=== PATIENT | female | born 1985 | race Caucasian/White ===

== ENCOUNTER 2016-10-09 10:24 | Inpatient (IN) | payer OTHER ==
[2016-10-09] MEDS ORDERED: DEXTROSE 5%-LACTATED RINGERS 1,000 ML IV SCH (12:25)
[2016-10-09] MEDS ORDERED: OXYTOCIN 15 UNITS/ LR 250 ML 250 ML IVPB SCH (13:00)
[2016-10-09 13:35] VITALS: BMI 32.5
[2016-10-09 13:40] LABS: BASOPHIL 0.3 % (0-2.0); EOSINOPHIL 0.3 % (0-4.5); MCH 23.3 pg (25.7-33.7); MCHC 31.7 g/dl (32.0-36.0); MEAN CELL VOLUME 73.3 fl (80-96); MEAN PLT VOLUME 7.8 fl (7.5-11.1); NEUTROPHILS 70.8 % (42.8-82.8); PLATELET COUNT 346 K/MM3 (134-434); RDW 18.2 % (11.6-15.6); WHITE BLOOD COUNT 12.5 K/mm3 (4.0-10.0)
[2016-10-09 13:50] LABS: CALCIUM 9.2 mg/dL (8.5-10.1); COCKROFT - GAULT 197.098; CREATININE 0.5 mg/dL (0.55-1.02)
[2016-10-09 13:59] LABS: INR 1.02 (0.82-1.09); PROTHROMBIN TIME (PATIENT) 11.2 SEC (9.98-11.88)
[2016-10-09 14:02] LABS: ACTIVATED PTT 26.7 SECONDS (26.9-34.4)
[2016-10-09] MEDS ORDERED: ELECTROLYTE-148 SOLN 500 ML IV ONE ×2 (20:30→21:30)
--- NOTE | 2016-10-09 20:37 | PN ---
Progress Note (short form) - Note Progress Note: cx 6 cm 80 ,vx -1. arom clear, herat rate good vaiability , with accel . had several mild variable decel . corrected on lt side, wants epidural anesthesia
[2016-10-09] MEDS ORDERED: FENTANYL/BUPIVACAINE/NS/PF - PCEA - 50 ML DISP.SYRIN EP SCH (21:00)
--- NOTE | 2016-10-10 01:28 | PN ---
Progress Note (short form) - Note Progress Note: cx full 100 vx 0 mr . r cat1
[2016-10-10] MEDS ORDERED: METHYLERGONOVINE MALEATE 0.2 MG/1 ML AMP IM PRN (02:20)
[2016-10-10] MEDS ORDERED: BISACODYL 10 MG SUPP.RECT RC PRN (02:20)
[2016-10-10] MEDS ORDERED: BENZOCAINE 20% 57 GM BOTTLE TP PRN (02:20)
[2016-10-10] MEDS ORDERED: BENZOCAINE 28 GM HEMORRHOIDAL OINTMENT TP PRN (02:20)
[2016-10-10] MEDS ORDERED: WITCH HAZEL 50% (TUCKS) 40 PAD/JAR PAD TP PRN (02:20)
[2016-10-10] MEDS ORDERED: D5W-LR W/ 20 UNITS OXYTOCIN 1,000 ML IV SCH (02:30)
[2016-10-10 02:46] LABS: VENOUS BLOOD GAS HCO3 23.9 meq/L (19-25); VENOUS PH 7.25 (7.32-7.42)
[2016-10-10] MEDS: ACETAMINOPHEN 325 MG TABLET (FP) PO PRN ×2 (04:45→21:10)
[2016-10-10] MEDS: IBUPROFEN 600 MG TABLET (FP) PO PRN ×2 (04:47→21:11)
[2016-10-10] MEDS: FERROUS SO4 325 MG TABLET (FP) PO SCH ×2 (09:53→21:10)
[2016-10-10] MEDS: PRENATAL VITAMINS W/ FOLIC ACID TABLET (FP) PO SCH (09:53)
--- NOTE | 2016-10-11 07:32 | PN ---
Post Progress Note Type of Delivery: Vital Signs: Vital Signs Temperature 98.2 F 10/11/16 00:44 Pulse Rate 68 10/11/16 00:44 Respiratory Rate 20 10/11/16 00:44 Blood Pressure 101/50 10/11/16 00:44 O2 Sat by Pulse Oximetry (%) 99 10/10/16 02:30 Breast Exam: Yes: Soft Uterus: Yes: Fundus Firm Abdomen/GI: Yes: Abdomen soft Lochia: Yes: Rubra Lochia, amount: Small Extremities: Yes: Calves non-tender Perineum: Yes: Intact Activity: Ambulating - Labs Labs: CBC WBC 12.5 K/mm3 (4.0-10.0) H 10/09/16 13:13 RBC 4.52 M/mm3 (3.60-5.2) 10/09/16 13:13 Hgb 10.5 GM/dL (10.7-15.3) L 10/09/16 13:13 Hct 33.1 % (32.4-45.2) 10/09/16 13:13 MCV 73.3 fl (80-96) L 10/09/16 13:13 MCHC 31.7 g/dl (32.0-36.0) L 10/09/16 13:13 RDW 18.2 % (11.6-15.6) H 10/09/16 13:13 Plt Count 346 K/MM3 (134-434) 10/09/16 13:13 MPV 7.8 fl (7.5-11.1) 10/09/16 13:13 Neutrophils % 70.8 % (42.8-82.8) 10/09/16 13:13 Lymphocytes % 19.8 % (8-40) 10/09/16 13:13 Monocytes % 8.8 % (3.8-10.2) 10/09/16 13:13 Eosinophils % 0.3 % (0-4.5) 10/09/16 13:13 Basophils % 0.3 % (0-2.0) 10/09/16 13:13 Assessment/Plan as above oob reg diet continue care
[2016-10-11 09:18] LABS: BASOPHIL 0.4 % (0-2.0); EOSINOPHIL 1.4 % (0-4.5); MCH 23.2 pg (25.7-33.7); MCHC 31.6 g/dl (32.0-36.0); MEAN CELL VOLUME 73.4 fl (80-96); MEAN PLT VOLUME 7.8 fl (7.5-11.1); NEUTROPHILS 72.2 % (42.8-82.8); PLATELET COUNT 269 K/MM3 (134-434); RDW 18.2 % (11.6-15.6); WHITE BLOOD COUNT 13.8 K/mm3 (4.0-10.0)
[2016-10-11] MEDS: FERROUS SO4 325 MG TABLET (FP) PO SCH ×2 (09:33→21:28)
[2016-10-11] MEDS: PRENATAL VITAMINS W/ FOLIC ACID TABLET (FP) PO SCH (09:33)
[2016-10-11] MEDS ORDERED: SENNOSIDES/DOCUSATE COMBO (SENNA PLUS) TABLET (UD) PO PRN (22:00)
--- NOTE | 2016-10-12 09:12 | DS ---
Physical Exam-[employer] Vital Signs: Vital Signs Temperature 98.5 F 10/11/16 20:57 Pulse Rate 80 10/11/16 20:57 Respiratory Rate 20 10/11/16 20:57 Blood Pressure 124/66 10/11/16 20:57 O2 Sat by Pulse Oximetry (%) 99 10/10/16 02:30 Constitutional: Yes: Well Nourished, No Distress, Calm Eyes: Yes: WNL, Conjunctiva Clear, EOM Intact HENT: Yes: WNL, Atraumatic, Normocephalic Neck: Yes: WNL, Supple, Trachea Midline Cardiovascular: Yes: WNL, Regular Rate and Rhythm Respiratory: Yes: WNL, Regular, CTA Bilaterally Gastrointestinal: Yes: WNL ...Rectal Exam: Yes: WNL Renal/: Yes: WNL ....Post : Yes: Uterus firm, Uterus non-tender, Slight lochia rubra Breast(s): Yes: WNL Musculoskeletal: Yes: WNL Extremities: Yes: WNL Edema: Yes Edema: LLE: Trace, RLE: Trace Integumentary: Yes: WNL Neurological: Yes: WNL, Alert, Oriented ...Motor Strength: WNL Psychiatric: Yes: WNL, Alert, Oriented Labs: CBC, BMP 10/11/16 08:00 10/09/16 13:13 Delivery - Delivery Vaginal Delivery: Spontaneous (no complication) Type of Anesthesia: Local, Epidural Episiotomy/Laceration: Midline EBL (cc): 300 Delivery, Single - Stages of Labor Date 1st Stage Initiatied: 10/09/16 Time 1st Stage Initiated: 20:00 Date 2nd Stage Initiated: 10/10/16 Time 2nd Stage Initiated: 01:00 Date of Delivery: 10/10/16 Time of Delivery: 01:47 Time Placenta Delivered: 01:49 Placenta: Yes: Spontaneous - Condition of Infant Manager [employer] Portfolio Manager Present: No Infant Gender: Female Weight: 9 lb 15 oz Position: Left, OA Total Hours ROM (Hrs/Mins): 5hrs/29mins - 1 Minute Total Score: 9 5 Minutes Total Score: 9 - [place] Feeding Plan Initial Plan: Exclusive throughout hospitalization Discharge Summary Reason For Visit: LABOR Procedures: Principal: Condition: Good - Instructions Diet, Activity, Other Instructions: regular diet, follow up [facility] 4 weeks Referrals: Kevin Jones MD [Staff Physician] - Disposition: HOME - Home Medications Comprehensive Discharge Medication List: Ambulatory Orders Ibuprofen [Motrin -] 600 mg PO QID #28 tablet 10/12/16
[2016-10-12] MEDS: PRENATAL VITAMINS W/ FOLIC ACID TABLET (FP) PO SCH (09:23)
[2016-10-12] MEDS: FERROUS SO4 325 MG TABLET (FP) PO SCH (09:23)
[2016-10-12 09:54] VITALS: BP 125/64; PULSE 78; TEMP 98.2
--- NOTE | 2016-10-18 19:34 | HP ---
Past Medical History - Primary Care Physician PCP:: Kevin Jones - Admission Chief Complaint: 40.2 weeks, labor History of Present Illness: 31 yo f , 40.2 weeks in labor, fhr cat 1, cx 2 cm 80 vx -2 fhr cat 1 , irregular contraction History Source: Patient Limitations to Obtaining History: No Limitations - Past Medical History ...: 2 ...Para: 1 ...Term: 1 ...: 0 ...Spon : 0 ...Induced : 0 ...Multiple Gestation: 0 ...LMP: 01/01/16 ... Weeks Gestation by Dates: 40.2 ...EDC by Dates: 10/07/16 ...EDC by Sono: 10/07/16 - Past Surgical History Hx Myomectomy: No Hx Transabdominal Cerclage: No - Smoking History Smoking history: Never smoked Have you smoked in the past 12 months: No - Alcohol/Substance Use Hx Alcohol Use: No - Social History Usual Living Arrangement: Yes: With Spouse History of Recent Travel: No Home Medications - Allergies Allergies/Adverse Reactions: Allergies Allergy/AdvReac Type Severity Reaction Status Date / Time No Known Allergies Allergy Verified 10/09/16 11:42 - Home Medications Home Medications: Ambulatory Orders Ibuprofen [Motrin -] 600 mg PO QID #28 tablet 10/12/16 Review of Systems - Review of Systems Constitutional: reports: No Symptoms Eyes: reports: No Symptoms HENT: reports: No Symptoms Neck: reports: No Symptoms Cardiovascular: reports: No Symptoms Respiratory: reports: No Symptoms Gastrointestinal: reports: No Symptoms Genitourinary: reports: No Symptoms Breasts: reports: No Symptoms Reported Musculoskeletal: reports: No Symptoms Integumentary: reports: No Symptoms Neurological: reports: No Symptoms Endocrine: reports: No Symptoms Hematology/Lymphatic: reports: No Symptoms Psychiatric: reports: No Symptoms Physical Exam - Maternity Vital Signs: Vital Signs Temperature 98.2 F 10/12/16 09:52 Pulse Rate 78 10/12/16 09:52 Respiratory Rate 20 10/12/16 09:52 Blood Pressure 125/64 10/12/16 09:52 O2 Sat by Pulse Oximetry (%) 99 10/10/16 02:30 Constitutional: Yes: Well Nourished, No Distress, Calm Eyes: Yes: WNL, Conjunctiva Clear, EOM Intact HENT: Yes: WNL, Atraumatic, Normocephalic Neck: Yes: WNL, Supple, Trachea Midline Cardiovascular: Yes: WNL, Regular Rate and Rhythm Breast(s): Yes: WNL - Abdominal Exam/OB Fundal Height: 40 Number of Fetuses: Single Presentation: Vertex Regularity: Irregular Intensity: Mod/Strong Monitor Mode: External Heart Rate Location: [facility] Category: I Accelerations: Uniform Decelerations: None - Vaginal Exam/OB Vaginal Bleediing: No Speculum Exam: No Dilatation (cm): 2 cm Effacement (%): 80 Amniotic Membrane Status: Intact Presentation: Vertex/Position Station: -2 - Physical Exam Musculoskeletal: Yes: WNL Edema: Yes Edema: LLE: Trace, RLE: Trace Deep Tendon Reflex Grade: Normal +2 - Labs Lab Results: CBC, BMP 10/11/16 08:00 10/09/16 13:13 Hemorrhage Risk Assessment - Risk Factors Risk Score: 1 Risk Level: Medium Risk Problem List - Problems (1) Postmaturity , 40-42 weeks gestation Code(s): O48.0 - POST-TERM (2) Labor established Code(s): MER0248 - Assessment/Plan admit for vaginal delivery, fhm
== END 2016-10-12 11:15 | disposition home or self-care (01) | DRG 560 ==
LOC: JDEL 10:24 → JLDR 12:25 → J3W 10-10 04:20
PROVIDERS: ADMIT Obstetrics & Gynecology; ATTEND Obstetrics & Gynecology
PROC: 10E0XZZ Delivery of Products of Conception, External Approach (ICD-10-PCS; principal; 2016-10-10)
PROC: 0W8NXZZ Division of Female Perineum, External Approach (ICD-10-PCS; 2016-10-10)
DX: O80 Encounter for full-term uncomplicated delivery (principal); Z3A.40 40 weeks gestation of pregnancy; Z37.0 Single live birth
CPT/HCPCS: 36415; 59409; 80048; 82803; 85025; 85610; 85730; 86593; 86850; 86900; 86901